=== PATIENT | male | born 2005 | race Caucasian/White ===

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

== ENCOUNTER 2024-12-31 14:37 | Emergency (ER) | payer BC, MEDICAID ==
[~2024-12-31] VITALS: Ht 177.8 cm; Wt 63.6 kg
[2024-12-31 14:51] VITALS: TEMP 97.8
--- NOTE | 2024-12-31 14:56 | Physician Documentation ---
History of Present Illness ~ Chief Complaint: Laceration Stated Complaint: HEAD LAC Time Seen by MD: 14:57 HPI 19-year-old male presents to the emergency department reporting that he hit the right side of his face just lateral to the right eye with a car door. Unknown tetanus status. Denies Vision changes or loss. Denies any other injuries or concerns Medication Reconciliation Allergies: Coded Allergies: clindamycin (Verified Allergy, Unknown, 12/31/24) Miscellaneous Medications [No Home Medications], (Reported) Past Medical History Past Medical History: No Pertinent History Past Surgical History: orthopedic surgeries Lives with: Mother, Father Lives In: Home Review of Systems ROS As stated above in the HPI, otherwise all systems are reviewed and negative. Physical Exam Vital Signs: Temperature: 97.8, Source: Temporal, Heart Rate: 75, Respiratory Rate: 18, BP: 135/78, Pulse Oximetry: 98, Weight: 63.640 Physical Exam General: Alert, no apparent distress. Neck: Full range of motion. Respiratory: Lungs clear, no respiratory distress. Chest: No accessory muscle use. Cardiovascular: Regular rate and rhythm, no murmurs. Gastrointestinal: Soft, nontender, nondistended. Bowels sounds present. Extremities: Normal range of motion, no deformity. Neurologic: Oriented x4. Psychiatric: Normal mood and affect. Skin: Normal color, warm and dry. No edema, no ecchymosis. Superficial 1/4 cm laceration lateral to right eye with bleeding controlled. Progress Results/Orders Results/Orders Orders - TONYA WESLEY NP Dressing Orders (12/31/24 14:56) Wound Care Orders (12/31/24 14:56) * Miscellaneous Nursing Orders (12/31/24 15:25) Completed Orders - TONYA WESLEY [employer] Tetanus/Pertuss/Diph Acell/Pf (Boostrix (12/31/24 15:00) Lidocaine/Epi/Tetracaine Top (Lidocaine/ (12/31/24 15:00) Medications Received in ER Medications (Trade) Dose Ordered Sig/Lizz Route PRN Reason Start Time Stop Time Status Last Admin Dose Admin (LIDOcaine/ epiNEPH/ tetracaine top alexys 3ml SYR) 5 ml ONCE ONCE TOP 12/31/24 15:00 12/31/24 15:01 DC 12/31/24 15:17 5 ML Vital Signs 12/31/24 14:51 Temp 97.8 Pulse 75 Resp 18 B/P (MAP) 135/78 Pulse Ox 98 Medical Decision Making Differential Dx:Considerations: Include: Abrasion, Avulsion, Contusion, Laceration, Fracture, Hematoma, Neurovascular injury, Retained foreign body Departure Time of Disposition: 15:52 Impression: Primary Impression: Laceration Condition: Stable Discharge Instructions: Laceration Care, Adult, [id number] Additional Instructions: Your wound was cleaned and dressed. You were offered a tetanus shot but declined. Return for signs of infection or with any other concerns that you're getting worse. Referrals: NO PRIMARY CARE PROVIDER (PCP) Education Educated: Patient Educated regarding: diagnosis, treatment, prognosis, need for follow up Signature Scribe Signature: x Attestation: The note accurately reflects work and decisions made by me.Tonya Short NP 12/31/24 14:56 TONYA WESLEY NP Dec 31, 2024 14:56
[2024-12-31] MEDS: LIDOcaine/epinephrine/tetracaine TOPICAL sol 3 ML syringe TOP ONE (15:17)
[2024-12-31] MEDS: TETanus/Pertussis (Acell)/Diphther VAC/PF (Tdap-Adult) 0.5ml syringe IMVAC ONE (15:18)
[2024-12-31 16:04] VITALS: BP 128/74; PULSE 76; RESP 16; O2SAT 98
== END 2024-12-31 16:05 | disposition home or self-care (01) ==
LOC: ER 14:38
DX: S05.31XA Ocular laceration without prolapse or loss of intraocular tissue, right eye, initial encounter (principal); Z88.1 Allergy status to other antibiotic agents; W22.09XA Striking against other stationary object, initial encounter; Y93.89 Activity, other specified; Y92.89 Other specified places as the place of occurrence of the external cause; Y99.8 Other external cause status
CPT/HCPCS: 99282; J3490